=== PATIENT | male | born 1985 | race American Indian/Alaskan Native ===

== ENCOUNTER 2021-05-01 22:08 | Emergency (ER) | payer SELFPAY ==
[2021-05-01] MEDS ORDERED: ONDANSETRON 4 MG/2 ML INJ IV ONE (22:18)
[2021-05-01] MEDS ORDERED: SODIUM CHLORIDE 0.9% 1000 ML 1,000 ML IV ONE (22:18)
--- NOTE | 2021-05-01 22:22 | Emergency Department Report ---
ED Seizure HPI - General Stated Complaint: SEIZURE Time Seen by Provider: 05/01/21 22:17 - History of Present Illness Initial Comments: Patient was brought in by ambulance for seizure. Patient does not have any recollection of the events. He does not think that he had a seizure. He cannot state why he does not think he had a seizure. He denies having seizure disorder. EMS was called because the patient was shaking and confused. Upon their arriva l, the patient was confused and postictal. Within about 20 minutes, he began to clear. They did administer oxygen by nasal cannula in route. Patient did not have a history of seizure. There is no history of recent travel or trauma. He had not been ill according to EMS. The family had told EMS that the patient had been complaining of headaches lately. Patient does not have a usual history of headaches. There is no family history of seizure. 2310-family is present and now provides history. She states that he had had a long night last night because her toddler had been awake all night. He was not sleeping well last night. Tonight, he slept and was taking a nap from 830 to about 9. She was supposed to wake him up at 9 so they could go to a movie. He had had an uneventful day. He had basically rested all day. She tried to wake him up at 9 and could not. She shook him multiple times. He finally opened his eyes and he had a blank stare. She reported some movement and twitching type activity. She states that he then closed his eyes. He later woke up with a similar response. At that point, she called an ambulance. Nothing like this is ever happened before. Their day yesterday and today was no different than usual. - Related Data Allergies Allergy/AdvReac Type Severity Reaction Status Date / Time No Known Allergies Allergy Unverified 05/01/21 22:15 ED Review of Systems ROS: Stated complaint: SEIZURE Other details as noted in HPI Comment: All other systems reviewed and negative (This was obtained after the patient was lucid) Constitutional: denies: fever ENT: denies: throat pain Respiratory: denies: cough Cardiovascular: denies: chest pain Endocrine: denies: unexplained weight loss Gastrointestinal: denies: abdominal pain Genitourinary: denies: dysuria Musculoskeletal: denies: back pain Skin: denies: rash Neurological: as per HPI Hematological/Lymphatic: denies: easy bruising ED Past Medical Hx - Past Medical History Previous Medical History?: No - Surgical History Past Surgical History?: No - Family History Family history: no significant ED Physical Exam - General Limitations: Altered Mental Status (Patient was postictal upon arrival, but cleared rapidly.), Other (Pulse ox noted and normal) General appearance: alert, in no apparent distress - Head Head exam: Present: atraumatic, normocephalic, normal inspection - Eye Eye exam: Present: normal appearance, PERRL. Absent: scleral icterus - ENT ENT exam: Present: normal exam, mucous membranes moist, normal external ear exam - Neck Neck exam: Present: normal inspection. Absent: tenderness, meningismus - Respiratory Respiratory exam: Present: normal lung sounds bilaterally. Absent: respiratory distress - Cardiovascular Cardiovascular Exam: Present: regular rate, normal rhythm - GI/Abdominal GI/Abdominal exam: Present: soft. Absent: tenderness - Extremities Exam Extremities exam: Present: normal capillary refill - Back Exam Back exam: Absent: CVA tenderness (R), CVA tenderness (L) - Neurological Exam Neurological exam: Present: alert, oriented X3, CN II-XII intact, reflexes normal, other (No dysdiadochokinesia or pronator drift is noted). Absent: motor sensory deficit - Psychiatric Psychiatric exam: Present: normal affect, normal mood - Skin Skin exam: Present: warm, dry ED Course Vital Signs 05/01/21 05/01/21 22:26 22:58 Temperature 98.8 F 98.4 F Pulse Rate 87 74 Respiratory 16 18 Rate Blood Pressure 111/81 118/66 [Left] O2 Sat by Pulse 96 100 Oximetry - Reevaluation(s) Reevaluation #1: 05/01/21 22:10 EMS was met. Patient promptly vomited in the hallway. IV and labs were ordered. CT was ordered. Old records reviewed. Reevaluation #2: 05/01/21 23:10 CBC is noted. The nurse is calling CT to find out why this is not completed. Reevaluation #3: 05/02/21 00:32 Labs have been reviewed. CT is still pending. Tech was called to try to expedite the scan. Reevaluation #4: 05/02/21 01:[address] was noted and the patient was discharged ED Medical Decision Making - Lab Data Result diagrams: 05/01/21 22:36 05/01/21 22:36 Rhythm strip: Normal sinus rhythm without ectopy per monitor observe 10 seconds. - Radiology Data Radiology results: report reviewed - Medical Decision Making Patient presents with new onset seizure. There is no CT evidence of tumor or mass. He has no evidence of bleed. There is no neurologic deficit on exam. He has no evidence of metabolic derangement or infectious pathology. Etiology for the seizure is not known. Patient will be referred for outpatient evaluation. Outpatient EEG should be considered. This has been discussed with the family. Critical Care Time: No Critical care attestation.: If time is entered above; I have spent that time in minutes in the direct care of this critically ill patient, excluding procedure time. ED Disposition Clinical Impression: New onset seizure Disposition: 01 HOME / SELF CARE / HOMELESS Is pt being admited?: No Condition: Stable Instructions: Seizure, Adult Additional Instructions: Push fluids. Rest. Do not operate heavy equipment or machinery. Do not drive until released. Do not swim or take a bath alone. Follow-up as discussed. Referrals: PRIMARY MD SARAH [Primary Care Provider] - 3-5 Days MARCOS LARA MD [Staff Physician] - 3-5 Days GURWINDER ORTEGA MD [Staff Physician] - 3-5 Days
[2021-05-01 22:46] LABS: Basophils % (Auto) 0.3 % (0.0-1.8); Eosinophils # (Auto) 0.1 K/mm3 (0.0-0.4); Eosinophils % (Auto) 0.6 % (0.0-4.3); Hematocrit 42.3 % (35.5-45.6); Hemoglobin 14.1 gm/dl (11.8-15.2); Lymphocytes # (Auto) 1.1 K/mm3 (1.2-5.4); Lymphocytes % (Auto) 11.7 % (13.4-35.0); Mean Corpuscular HGB Conc 33 % (32-34); Mean Corpuscular Volume 86 fl (84-94); Monocytes # (Auto) 0.7 K/mm3 (0.0-0.8); Monocytes % (Auto) 7.3 % (0.0-7.3); Platelet Count 237 K/mm3 (140-440); Red Blood Count 4.91 M/mm3 (3.65-5.03); Red Cell Distribution Width 14.3 % (13.2-15.2)
[2021-05-01 23:10] LABS: Calcium 9.6 mg/dL (8.4-10.2)
--- NOTE | 2021-05-02 01:25 | Cat Scan Report ---
CT HEAD WITHOUT CONTRAST INDICATION / CLINICAL INFORMATION: new onset seizure. TECHNIQUE: All CT scans at this location are performed using CT dose reduction for ALARA by means of automated exposure control. COMPARISON: None available. FINDINGS: HEMORRHAGE: None. EXTRA-AXIAL SPACES: Normal in size and morphology for the patient's age. VENTRICULAR SYSTEM: Normal in size and morphology for the patient's age. CEREBRAL PARENCHYMA: No significant abnormality. No acute territorial infarct. MIDLINE SHIFT / HERNIATION: None. CEREBELLUM / BRAINSTEM: No significant abnormality. ORBITS: Normal as visualized. SOFT TISSUES: No significant abnormality. SKULL: No significant abnormality. PARANASAL SINUSES / MASTOID AIR CELLS: Normal as visualized. ADDITIONAL FINDINGS: None. IMPRESSION: 1. No acute intracranial abnormality. Signer Name: Rodríguez Solo MD Signed: 05/02/2021 1:20 AM Workstation Name: [id number]
[2021-05-02 02:48] VITALS: BP 122/68
== END 2021-05-02 02:47 | disposition home or self-care (01) ==
LOC: ED 22:08
DX: R56.9 Unspecified convulsions (principal)
CPT/HCPCS: 36415; 70450; 80048; 83735; 85025; 96361; 96374; 99284; J2405; J7030

== ENCOUNTER 2021-08-28 20:22 | Emergency (ER) | payer SELFPAY ==
[2021-08-28 20:38] VITALS: BP 143/91
[2021-08-28] MEDS ORDERED: LIDOCAINE (1%) 10 MG/1 ML VIAL 20 ML MDV INFILTRATI ONE (22:12)
[2021-08-28] MEDS ORDERED: IBUPROFEN 600 MG TAB PO ONE (22:12)
[2021-08-28] MEDS: TETANUS,DIPH,PERTUSS(ACELL) VACCINE 0.5 ML SYRINGE IM ONE ×2 (22:28→22:31)
--- NOTE | 2021-08-29 00:45 | Emergency Department Report ---
- General Chief Complaint: Wound/Laceration Stated Complaint: CUT ARM Source: patient Mode of arrival: Ambulatory Limitations: No Limitations - History of Present Illness Initial Comments: Patient is a 35-year-old -Armenian male with a history of seizures who presents to the ED with complaint of acute onset painful bleeding ventral left wrist laceration wound after he accidentally touched a sharp edge of a kitchen knife about 1 hour prior to arrival in the ED. Patient states that the puncture wound has been bleeding and that the bleeding is not well controlled. Patient states that he is not up-to-date with tetanus vaccinations. Patient denies numbness and tingling or weakness of left wrist, dizziness, syncope, fall, nausea and vomiting or change in vision. -: Sudden, hour(s) (1) Location: other (Left wrist) Place: home Patient Tetanus UTD: No (Given during this visit) Context: accidental Associated Symptoms: pain. denies: loss of feeling/numbness, suspect foreign body present, unable to move injured part, weakness followed by dizziness, nausea/vomiting, fever - Related Data Previous Rx's Medication Instructions Recorded Last Taken Type Ibuprofen [Motrin] 800 mg PO Q8HR PRN #30 tablet 08/29/21 Unknown Rx cephALEXin [Keflex] 500 mg PO Q8HR #30 cap 08/29/21 Unknown Rx Allergies Allergy/AdvReac Type Severity Reaction Status Date / Time No Known Allergies Allergy Unverified 05/01/21 22:15 ED Review of Systems ROS: Stated complaint: CUT ARM Other details as noted in HPI Constitutional: denies: chills, fever Eyes: denies: eye pain, eye discharge, vision change ENT: denies: ear pain, throat pain Respiratory: denies: cough, shortness of breath, wheezing Cardiovascular: denies: chest pain, palpitations Endocrine: no symptoms reported Gastrointestinal: denies: abdominal pain, nausea, vomiting, diarrhea Genitourinary: denies: urgency, dysuria Musculoskeletal: arthralgia (Left wrist pain due to a bleeding laceration wound). denies: back pain, joint swelling Skin: other (Bleeding left wrist laceration wound with localized pain). denies: rash, lesions Neurological: denies: headache, weakness, paresthesias Psychiatric: denies: anxiety, depression Hematological/Lymphatic: denies: easy bleeding, easy bruising ED Past Medical Hx - Past Medical History Previous Medical History?: Yes Hx Seizures: Yes - Surgical History Past Surgical History?: Yes - Social History Smoking Status: Never Smoker - Medications Home Medications: Home Medications Medication Instructions Recorded Confirmed Last Taken Type Ibuprofen [Motrin] 800 mg PO Q8HR PRN #30 tablet 08/29/21 Unknown Rx cephALEXin [Keflex] 500 mg PO Q8HR #30 cap 08/29/21 Unknown Rx ED Physical Exam - General Limitations: No Limitations General appearance: alert, in no apparent distress - Head Head exam: Present: atraumatic, normocephalic, normal inspection - Eye Eye exam: Present: normal appearance, PERRL, EOMI Pupils: Present: normal accommodation - ENT ENT exam: Present: normal exam, normal orophraynx, mucous membranes moist, TM's normal bilaterally, normal external ear exam - Neck Neck exam: Present: normal inspection, full ROM. Absent: tenderness - Respiratory Respiratory exam: Present: normal lung sounds bilaterally. Absent: respiratory distress, wheezes, rales, chest wall tenderness, accessory muscle use, decreased breath sounds, prolonged expiratory - Cardiovascular Cardiovascular Exam: Present: regular rate, normal rhythm, normal heart sounds. Absent: systolic murmur, diastolic murmur, rubs, gallop - GI/Abdominal GI/Abdominal exam: Present: soft, normal bowel sounds. Absent: tenderness, guarding, rebound, hyperactive bowel sounds, hypoactive bowel sounds, organomegaly - Extremities Exam Extremities exam: Present: normal inspection, full ROM, tenderness (Palpable localized left wrist tenderness due to a bleeding 5 cm laceration wound), normal capillary refill. Absent: pedal edema, joint swelling, calf tenderness - Back Exam Back exam: Present: normal inspection, full ROM. Absent: tenderness, CVA tenderness (R), CVA tenderness (L), muscle spasm, paraspinal tenderness - Neurological Exam Neurological exam: Present: alert, oriented X3, CN II-XII intact, normal gait, reflexes normal - Psychiatric Psychiatric exam: Present: normal affect, normal mood, anxious - Skin Skin exam: Present: warm, dry, intact, normal color, other (Bleeding 5 cm laceration wound on ventral left wrist with localized mild tenderness). Absent: rash ED Course Vital Signs 08/28/21 08/28/21 20:28 22:27 Temperature 98.1 F Pulse Rate 64 Respiratory 18 14 Rate Blood Pressure 143/91 O2 Sat by Pulse 97 Oximetry - Laceration /Wound Repair Left Medial Volar Wrist Wound Location: upper extremity (Medial left wrist bleeding laceration) Wound Length (cm): 5 Wound's Depth, Shape: superficial, irregular Wound Explored: contaminated Irrigated w/ Saline (ccs): 200 Betadine Prep?: No Anesthesia: 1% Lidocaine Volume Anesthetic (ccs): 7 Wound Debrided: extensive Wound Repaired With: sutures Suture Size/Type: 3:0, proline Number of Sutures: 9 Layer Closure?: No Sterile Dressing Applied?: Yes Progress: The area was cleaned extensively with normal saline, lidocaine 1% solution was used as a local anesthetic. When anesthesia was fully achieved, the wound was sutured per protocol using Prolene 3-0 sutures for a total of 9 sutures. The wound was then dressed appropriately with 4 x 4 gauze and Kerlix gauze and patient tolerated the procedure well. Patient is neurovascularly intact on reevaluation. ED Medical Decision Making - Medical Decision Making This is a 35-year-old -Armenian male with a history of seizures who presents to the ED with complaint of acute onset painful bleeding ventral left wrist laceration wound after he accidentally touched a sharp edge of a kitchen knife about 1 hour prior to arrival in the ED. Patient states that the puncture wound has been bleeding and that the bleeding is not well controlled. Patient states that he is not up-to-date with tetanus vaccinations. In the ED, patient is alert and oriented x3 and is not in any distress. Patient was treated for pain in the ED and also received booster tetanus vaccinations. Left wrist laceration wound was cleaned extensively with normal saline and sutured per protocol. Patient tolerated the procedure well. The wound was then dressed appropriately with 4 x 4 gauze and Kerlix and the patient discharged home on pain medication and prophylactic antibiotics. Patient was advised return to the ED immediately if symptoms get worse. Patient was advised return to the ED or to his primary care physician in 7 to 10 days for reevaluation. Patient was otherwise advised return to the ED or to his primary care physician in 12 to 14 days for suture removal. - Differential Diagnosis Wrist laceration; puncture wound; abrasion; Critical care attestation.: If time is entered above; I have spent that time in minutes in the direct care of this critically ill patient, excluding procedure time. ED Disposition Clinical Impression: Laceration of left wrist without foreign body Qualifiers: Encounter type: initial encounter Qualified Code(s): S61.512A - Laceration without foreign body of left wrist, initial encounter Puncture wound of left wrist without foreign body Qualifiers: Encounter type: initial encounter Qualified Code(s): S61.532A - Puncture wound without foreign body of left wrist, initial encounter Disposition: HOME / SELF CARE / HOMELESS Is pt being admited?: No Does the pt Need Aspirin: No Condition: Stable Instructions: Puncture Wound, [id number], Laceration Care, Adult, [id number], Sutured Wound Care, [id number] Additional Instructions: Take medication with food, drink plenty of fluids and follow-up with your primary care physician in 7 to 10 days for reevaluation. Return to the ED immediately if symptoms get worse. Otherwise return to the ED or your primary care physician in 12 to 14 days for suture removal. Prescriptions: cephALEXin [Keflex] 500 mg PO Q8HR #30 cap Ibuprofen [Motrin] 800 mg PO Q8HR PRN #30 tablet PRN Reason: Pain , Severe (7-10) Referrals: [facility] [Provider Group] - 7-10 days Forms: Work/School Release Form(ED) Time of Disposition: 00:45 Print Language: MACANESE
== END 2021-08-29 01:35 | disposition home or self-care (01) ==
LOC: ED 20:22
DX: S61.512A Laceration without foreign body of left wrist, initial encounter (principal); S61.532A Puncture wound without foreign body of left wrist, initial encounter; W26.0XXA Contact with knife, initial encounter; Y93.89 Activity, other specified; Y92.89 Other specified places as the place of occurrence of the external cause; Y99.8 Other external cause status
CPT/HCPCS: 12002; 90715; 99282; J3490

== ENCOUNTER 2021-09-09 12:40 | Emergency (ER) | payer SELFPAY ==
[2021-09-09 12:48] VITALS: BP 145/70
--- NOTE | 2021-09-09 13:14 | Emergency Department Report ---
Suture/Staple Removal - [facility] Chief Complaint: Laceration/Recheck/Suture Stated Complaint: REMOVE STITCHES Time Seen by Provider: 09/09/21 12:55 When Sutures or [place] Placed: 5-7 Days Ago Wound Location: Left wrist ED Review of Systems ROS: Stated complaint: REMOVE STITCHES Other details as noted in HPI Constitutional: denies: chills, fever Eyes: denies: eye pain, eye discharge, vision change ENT: denies: ear pain, throat pain Respiratory: denies: cough, shortness of breath, wheezing Cardiovascular: denies: chest pain, palpitations Endocrine: no symptoms reported Gastrointestinal: denies: abdominal pain, nausea, diarrhea Genitourinary: denies: urgency, dysuria Musculoskeletal: denies: back pain, joint swelling, arthralgia Skin: denies: rash, lesions Neurological: denies: headache, weakness, paresthesias Psychiatric: denies: anxiety, depression Hematological/Lymphatic: denies: easy bleeding, easy bruising ED Past Medical Hx - Past Medical History Hx Seizures: Yes - Social History Smoking Status: Never Smoker - Medications Home Medications: Home Medications Medication Instructions Recorded Confirmed Last Taken Type Ibuprofen [Motrin] 800 mg PO Q8HR PRN #30 tablet 08/29/21 Unknown Rx cephALEXin [Keflex] 500 mg PO Q8HR #30 cap 08/29/21 Unknown Rx Suture Removal Exam - Exam General: Vital signs noted. No distress. Alert and acting appropriately. Wound: No Pathologic Erythema, No Tenderness, No Drainage, No Pus, No Wound Dehiscence Other Systems: All other systems reviewed and are unremarkable. Clean dry and intact ED Course Vital Signs 09/09/21 12:47 Temperature 98.2 F Pulse Rate 67 Respiratory 18 Rate Blood Pressure 145/70 [Right] O2 Sat by Pulse 96 Oximetry ED Recheck MDM - Differential Diagnosis Wound Recheck - Medical Decision Making Wound was clean dry and intact. Due to being in close proximity to the wrist I did recommend keeping the sutures in longer the patient did not want to do this so I did remove the sutures and Place Steri-Strips. Recommend keep the wound dry. Return the ER with any change or worsening symptoms. Critical care attestation.: If time is entered above; I have spent that time in minutes in the direct care of this critically ill patient, excluding procedure time. ED Disposition Clinical Impression: Visit for suture removal Disposition: HOME / SELF CARE / HOMELESS Is pt being admited?: No Condition: Stable Instructions: Incision Care, Adult Time of Disposition: 13:14
== END 2021-09-09 13:36 | disposition home or self-care (01) ==
LOC: ED 12:40
DX: S61.512D Laceration without foreign body of left wrist, subsequent encounter (principal); X58.XXXD Exposure to other specified factors, subsequent encounter
CPT/HCPCS: 99282